=== PATIENT | female | born 1940 | race Caucasian/White ===

== ENCOUNTER 2022-12-05 13:45 | Inpatient (IN) | payer OTHER, MEDICARE, BC ==
[2022-12-05] MEDS ORDERED: Morphine 2 MG/ML VIAL ONE (14:39)
[2022-12-05] MEDS ORDERED: Acetaminophen 500 MG TAB ONE (14:40)
[2022-12-05 15:08] LABS: #Eosinphils 0.2 thou/uL (0.0-0.7); #Monocytes 0.6 thou/uL (0.11-0.59); #Neutrophils 3.9 thou/uL (1.40-6.50); %Basophils 0.5 % (0.0-1.0); %Eosinophils 3.5 % (0.0-10.0); %Lymphocytes 29.7 % (21.0-51.0); %Monocytes 8.7 % (0.0-10.0); %Neutrophils 57.7 % (42.0-75.0); Hemoglobin 13.4 g/dL (12.0-16.0); Mean Corpuscular Hemoglobin 32.9 pg (27.0-31.0); Mean Corpuscular Volume 99.6 fl (78.0-98.0); Mean Platelet Volume 7.6 fL (7.4-10.4); Platelet Count 189 10x3/uL (130-400); RBC Distribution Width 12.5 % (11.5-14.5); Red Blood Cell (RBC) Count 4.06 mill/uL (4.20-5.40); White Blood Cell (WBC) Count 6.7 10x3/uL (4.8-10.8)
[2022-12-05 15:29] LABS: Anion Gap 14 mmol/L (10-20); BUN (Urea Nitrogen) 23 mg/dL (9.8-20.1); Calc. Creatinine Clearance 0 mL/min (70-130); Calcium 9.8 mg/dL (7.8-10.44); Carbon Dioxide 26 mmol/L (23-31); Chloride 106 mmol/L (98-107); Estimated GFR 68; Glucose 94 mg/dL (83-110); Potassium 3.7 mmol/L (3.5-5.1); Sodium 142 mmol/L (136-145)
[2022-12-05] MEDS ORDERED: hydrALAZINE 20 MG/ML VIAL ONE (15:41)
[2022-12-05] MEDS ORDERED: Amlodipine 5 MG TAB ONE (15:41)
[2022-12-05] MEDS ORDERED: Morphine 2 MG/ML VIAL SLOW IVP PRN (16:16)
[2022-12-05] MEDS ORDERED: Ondansetron PF 4 MG/2 ML Vial IVP PRN (16:16)
[2022-12-05] MEDS ORDERED: Ipratropium Bromide 2.5 ml Neb NEB PRN (16:26)
[2022-12-05] MEDS ORDERED: Sodium Chloride 0.9% 1,000 ML IV SCH (16:30)
[2022-12-05] MEDS ORDERED: CEFAZOLIN 2 GM in Sodium Chloride 0.9% 100 ML IVPB SCH (17:00)
[2022-12-05] MEDS ORDERED: Acetaminophen 500 MG TAB PO SCH (18:00)
[2022-12-05] MEDS: Acetaminophen 325 MG TAB PO SCH ×2 (18:48→23:20)
[2022-12-05] MEDS: Acetaminophen/Codeine 30-300mg Tablet PO SCH (20:15)
[2022-12-05] MEDS: QUEtiapine 25 MG TAB PO SCH (20:16)
[2022-12-05] MEDS: Senokot S 8.6-50 MG TAB PO SCH (20:16)
[2022-12-05] MEDS: Melatonin 3 MG TAB PO SCH (20:16)
[2022-12-06] MEDS: Acetaminophen/Codeine 30-300mg Tablet PO SCH ×4 (01:36→21:22)
[2022-12-06] MEDS: Acetaminophen 325 MG TAB PO SCH ×3 (04:51→19:44)
[2022-12-06 07:08] LABS: #Eosinphils 0.2 thou/uL (0.0-0.7); #Lymphocytes 1.3 thou/uL (1.20-3.40); #Neutrophils 6.8 thou/uL (1.40-6.50); %Basophils 0.2 % (0.0-1.0); %Eosinophils 2.6 % (0.0-10.0); %Monocytes 10.9 % (0.0-10.0); %Neutrophils 72.3 % (42.0-75.0); Hemoglobin 12.4 g/dL (12.0-16.0); Mean Corpuscular HGB CONC 34.2 g/dL (32.0-36.0); Mean Corpuscular Hemoglobin 33.9 pg (27.0-31.0); Mean Corpuscular Volume 99.3 fl (78.0-98.0); Mean Platelet Volume 7.8 fL (7.4-10.4); Platelet Count 179 10x3/uL (130-400); RBC Distribution Width 12.5 % (11.5-14.5); Red Blood Cell (RBC) Count 3.67 mill/uL (4.20-5.40); White Blood Cell (WBC) Count 9.5 10x3/uL (4.8-10.8)
[2022-12-06 07:16] LABS: INR-International Normal Ratio 1.2; PTT 28.7 sec (22.9-36.1); Prothrombin Time 15.3 sec (12.0-14.7)
[2022-12-06 07:26] LABS: Phosphorus 2.8 mg/dL (2.3-4.7)
[2022-12-06 07:33] LABS: Anion Gap 11 mmol/L (10-20); BUN (Urea Nitrogen) 17 mg/dL (9.8-20.1); CK (CPK) 116 U/L (29-168); Calc. Creatinine Clearance 49 mL/min (70-130); Calcium 9.3 mg/dL (7.8-10.44); Carbon Dioxide 22 mmol/L (23-31); Chloride 109 mmol/L (98-107); Estimated GFR 86; Glucose 99 mg/dL (83-110); Magnesium 1.9 mg/dL (1.6-2.6); Potassium 3.6 mmol/L (3.5-5.1); Sodium 138 mmol/L (136-145)
[2022-12-06] MEDS: Polyethylene Glycol 3350 17 GM Packet PO SCH (08:29)
[2022-12-06] MEDS: Multivitamin W/ Minerals 1 TAB PO SCH (09:53)
[2022-12-06] MEDS: Senokot S 8.6-50 MG TAB PO SCH ×2 (09:54→21:23)
[2022-12-06] MEDS ORDERED: Propofol 1,000 MG/100 ML VIAL IV ONE (10:30)
[2022-12-06] MEDS ORDERED: Acetaminophen 650 MG Suppository ONE (10:39)
[2022-12-06] MEDS ORDERED: Phenylephrine 10 MG/ML VIAL ONE (11:04)
[2022-12-06] MEDS ORDERED: Lidocaine 1% PF 5 ML VIAL ONE (11:04)
[2022-12-06] MEDS ORDERED: PROPOFOL 200 MG/20 ML VIAL ONE (11:04)
[2022-12-06] MEDS ORDERED: Dexamethasone 20 MG/5 ML VIAL ONE (11:04)
[2022-12-06] MEDS ORDERED: Ondansetron PF 4 MG/2 ML Vial ONE (11:04)
[2022-12-06] MEDS ORDERED: Bupivacaine PF 0.5% 30 ML VIAL ONE (11:33)
[2022-12-06] MEDS: CEFAZOLIN 2 GM in Sodium Chloride 0.9% 100 ML IVPB SCH ×2 (15:24→21:24)
[2022-12-06 17:28] LABS: Bacteria/HPF None Seen HPF (None Seen); Bilirubin Negative (Negative); Blood, Urine Trace (Negative); CAUTI Indications for Culture Alt mental st,lethar; Clarity Clear (Clear); Glucose, Urine (Dipstick) Normal (Negative); Ketone, Urine Negative (Negative); Leukocyte Negative Leu/uL (Negative); Nitrite Negative (Negative); Protein, Urine (Dipstick) 20 mg/dL (Neg-Trace); RBC/HPF 0-3 HPF (0-3); Specific Gravity, Urine 1.024 (1.002-1.036); Squamous Epithelial 0-3 HPF (0-3); Urobilinogen Normal mg/dL (Less than 2); WBC/HPF 0-3 HPF (0-3); pH, Urine 5.5 (5.0-9.0)
[2022-12-06 17:30] LABS: Urine Culture Reflex No No
[2022-12-06] MEDS: Melatonin 3 MG TAB PO SCH (21:22)
[2022-12-06] MEDS: QUEtiapine 25 MG TAB PO SCH (21:24)
[2022-12-07] MEDS: Acetaminophen 325 MG TAB PO SCH ×2 (00:36→06:46)
[2022-12-07] MEDS: Acetaminophen/Codeine 30-300mg Tablet PO SCH ×3 (03:00→11:21)
[2022-12-07 05:57] LABS: #Lymphocytes 1.4 thou/uL (1.20-3.40); #Monocytes 1.1 thou/uL (0.11-0.59); %Basophils 0.2 % (0.0-1.0); %Eosinophils 0.2 % (0.0-10.0); %Monocytes 10.8 % (0.0-10.0); %Neutrophils 75.7 % (42.0-75.0); Hemoglobin 11.3 g/dL (12.0-16.0); Mean Corpuscular Hemoglobin 34.6 pg (27.0-31.0); Mean Corpuscular Volume 98.7 fl (78.0-98.0); Mean Platelet Volume 7.9 fL (7.4-10.4); Platelet Count 165 10x3/uL (130-400); RBC Distribution Width 12.5 % (11.5-14.5); Red Blood Cell (RBC) Count 3.26 mill/uL (4.20-5.40); White Blood Cell (WBC) Count 10.6 10x3/uL (4.8-10.8)
[2022-12-07] MEDS: CEFAZOLIN 2 GM in Sodium Chloride 0.9% 100 ML IVPB SCH (06:44)
[2022-12-07] MEDS: Senokot S 8.6-50 MG TAB PO SCH ×2 (08:31→21:56)
[2022-12-07] MEDS: Multivitamin W/ Minerals 1 TAB PO SCH (08:31)
[2022-12-07] MEDS: Polyethylene Glycol 3350 17 GM Packet PO SCH (08:31)
[2022-12-07] MEDS ORDERED: Ketorolac Tromethamine 30 MG/ML VIAL ONE (09:52)
[2022-12-07] MEDS ORDERED: Sodium Chloride 0.9% 500 ML IV SCH (10:15)
[2022-12-07] MEDS: Acetaminophen 500 MG TAB PO SCH ×3 (12:41→23:45)
[2022-12-07] MEDS: Sodium Chloride 0.9% 1,000 ML IV SCH (15:00)
[2022-12-07] MEDS: Ketorolac Tromethamine 30 MG/ML VIAL IVP SCH ×2 (15:43→21:56)
[2022-12-07] MEDS: Melatonin 3 MG TAB PO SCH (21:56)
[2022-12-07] MEDS: Aspirin 81 mg Enteric Coated Tablet PO SCH (21:56)
[2022-12-08] MEDS: Acetaminophen 500 MG TAB PO SCH ×4 (04:48→23:24)
[2022-12-08] MEDS: Ketorolac Tromethamine 30 MG/ML VIAL IVP SCH (04:48)
[2022-12-08 06:06] LABS: #Eosinphils 0.1 thou/uL (0.0-0.7); #Lymphocytes 0.7 thou/uL (1.20-3.40); #Monocytes 0.5 thou/uL (0.11-0.59); #Neutrophils 7.8 thou/uL (1.40-6.50); %Basophils 0.2 % (0.0-1.0); %Eosinophils 0.8 % (0.0-10.0); %Lymphocytes 7.4 % (21.0-51.0); %Monocytes 5.3 % (0.0-10.0); %Neutrophils 86.2 % (42.0-75.0); Hemoglobin 10.3 g/dL (12.0-16.0); Mean Corpuscular HGB CONC 33.3 g/dL (32.0-36.0); Mean Corpuscular Hemoglobin 33.1 pg (27.0-31.0); Mean Corpuscular Volume 99.3 fl (78.0-98.0); Mean Platelet Volume 7.9 fL (7.4-10.4); Platelet Count 146 10x3/uL (130-400); RBC Distribution Width 12.4 % (11.5-14.5); Red Blood Cell (RBC) Count 3.11 mill/uL (4.20-5.40); White Blood Cell (WBC) Count 9.1 10x3/uL (4.8-10.8)
[2022-12-08] MEDS: Polyethylene Glycol 3350 17 GM Packet PO SCH (08:15)
[2022-12-08] MEDS: Senokot S 8.6-50 MG TAB PO SCH ×2 (08:27→20:56)
[2022-12-08] MEDS: Multivitamin W/ Minerals 1 TAB PO SCH (08:27)
[2022-12-08] MEDS: Aspirin 81 mg Enteric Coated Tablet PO SCH (08:28)
[2022-12-08] MEDS: Sodium Chloride 0.9% 1,000 ML IV SCH ×2 (08:28→23:35)
[2022-12-08] MEDS ORDERED: Ibuprofen 200 MG TAB PO PRN (08:37)
[2022-12-08] MEDS: Timolol 0.25% Ophth Soln 5 ml Bottle EA EYE SCH ×2 (09:11→20:56)
[2022-12-08] MEDS: Lisinopril 10 MG TAB PO SCH (09:12)
[2022-12-08] MEDS: Atorvastatin Calcium 40 MG TAB PO SCH (09:13)
[2022-12-08] MEDS: Escitalopram Oxalate 10 mg Tablet PO SCH (09:13)
[2022-12-08] MEDS: Clopidogrel Bisulfate 75 MG TAB PO SCH (09:14)
[2022-12-08 14:29] VITALS: BMI 17.9
[2022-12-09] MEDS: Acetaminophen 500 MG TAB PO SCH ×2 (03:37→12:07)
[2022-12-09 05:53] LABS: #Eosinphils 0.3 thou/uL (0.0-0.7); #Lymphocytes 1.1 thou/uL (1.20-3.40); #Monocytes 0.6 thou/uL (0.11-0.59); #Neutrophils 5.2 thou/uL (1.40-6.50); %Basophils 0.2 % (0.0-1.0); %Eosinophils 4.4 % (0.0-10.0); %Lymphocytes 15.3 % (21.0-51.0); %Monocytes 8.7 % (0.0-10.0); %Neutrophils 71.4 % (42.0-75.0); Hemoglobin 9.7 g/dL (12.0-16.0); Mean Corpuscular HGB CONC 32.7 g/dL (32.0-36.0); Mean Corpuscular Hemoglobin 33.6 pg (27.0-31.0); Mean Platelet Volume 7.7 fL (7.4-10.4); Platelet Count 166 10x3/uL (130-400); RBC Distribution Width 12.4 % (11.5-14.5); White Blood Cell (WBC) Count 7.3 10x3/uL (4.8-10.8)
[2022-12-09 06:17] LABS: Anion Gap 13 mmol/L (10-20); BUN (Urea Nitrogen) 30 mg/dL (9.8-20.1); Calc. Creatinine Clearance 47 mL/min (70-130); Calcium 8.9 mg/dL (7.8-10.44); Carbon Dioxide 21 mmol/L (23-31); Chloride 112 mmol/L (98-107); Estimated GFR 84; Glucose 105 mg/dL (83-110); Potassium 3.6 mmol/L (3.5-5.1); Sodium 142 mmol/L (136-145)
[2022-12-09] MEDS: Timolol 0.25% Ophth Soln 5 ml Bottle EA EYE SCH (08:45)
[2022-12-09] MEDS: Clopidogrel Bisulfate 75 MG TAB PO SCH (08:46)
[2022-12-09] MEDS: Escitalopram Oxalate 10 mg Tablet PO SCH (08:46)
[2022-12-09] MEDS: Atorvastatin Calcium 40 MG TAB PO SCH (08:46)
[2022-12-09] MEDS: Lisinopril 10 MG TAB PO SCH (08:46)
[2022-12-09] MEDS: Polyethylene Glycol 3350 17 GM Packet PO SCH (08:47)
[2022-12-09] MEDS: Senokot S 8.6-50 MG TAB PO SCH (08:47)
[2022-12-09] MEDS: Multivitamin W/ Minerals 1 TAB PO SCH (08:51)
[2022-12-09] MEDS ORDERED: Lactated Ringer's 1,000 ML IV SCH (10:15)
[2022-12-09] MEDS ORDERED: hydrALAZINE 20 MG/ML VIAL SLOW IVP SCH (10:30)
[2022-12-09 15:53] VITALS: TEMP 98.5
[2022-12-09 16:03] VITALS: BP 170/79
[2022-12-09] MEDS ORDERED: Aspirin 81 mg Enteric Coated Tablet PO SCH (21:00)
[2022-12-09] MEDS ORDERED: Latanoprost 0.005% Ophth Soln 2.5 ml Bottle EA EYE SCH (21:00)
[2022-12-09] MEDS ORDERED: Melatonin 3 MG TAB PO SCH (21:00)
[2022-12-09] MEDS ORDERED: Famotidine 20 MG TAB PO SCH (21:00)
[2022-12-10] MEDS ORDERED: Calcium Carbonate 500 MG TAB PO SCH (09:00)
== END 2022-12-09 16:15 | DRG 522 ==
LOC: ERS 13:45 → SJJU 17:21
PROVIDERS: ADMIT Specialist; ATTEND Specialist
PROC: 0SRS0JZ Replacement of Left Hip Joint, Femoral Surface with Synthetic Substitute, Open Approach (ICD-10-PCS; principal; 2022-12-06)
PROC: 0T9B70Z Drainage of Bladder with Drainage Device, Via Natural or Artificial Opening (ICD-10-PCS; 2022-12-09)
DX: S72.002A Fracture of unspecified part of neck of left femur, initial encounter for closed fracture (principal); Z68.1 Body mass index [BMI] 19.9 or less, adult; E78.5 Hyperlipidemia, unspecified; I10 Essential (primary) hypertension; W19.XXXA Unspecified fall, initial encounter; R63.6 Underweight; G31.83 Neurocognitive disorder with Lewy bodies; F02.80 Dementia in other diseases classified elsewhere, unspecified severity, without behavioral disturbance, psychotic disturbance, mood disturbance, and anxiety; R34 Anuria and oliguria; Z85.3 Personal history of malignant neoplasm of breast; Z90.710 Acquired absence of both cervix and uterus; Y92.89 Other specified places as the place of occurrence of the external cause
CPT/HCPCS: 36415; 36416; 51701; 70450; 72170; 80048; 81001; 82550; 83735; 84100; 84484; 85025; 85610; 85730; 86850; 86900; 86901; 93005; 93880; 96374; 96375; C1776; G0390; J0360; J1100; J1885; J2272; J2370; J2405; J2704; J3490; J7030; J7050; J7120; S0020